=== PATIENT | female | born 1975 | race Hispanic/Latino ===

== ENCOUNTER 2018-12-29 07:12 | Day surgery (SDC) | payer OTHER, SELFPAY ==
[2018-12-28 15:25] VITALS: BP 129/65
[2018-12-28 15:31] LABS: EOSINOPHILS % (AUTO) 1.3 % (0.0-8.0); HEMATOCRIT 37.5 % (36-48); LYMPHOCYTES % (AUTO) 21.2 % (21.0-51.0); MEAN CORPUSCULAR HEMOGLOBIN 30.4 pg (27.0-33.0); MEAN CORPUSCULAR HGB CONC 33.6 g/dL (32.0-36.0); MEAN CORPUSCULAR VOLUME 90.5 fL (79-99); MONOCYTES % (AUTO) 8.2 % (3.0-13.0); NEUTROPHILS % (AUTO) 68.3 % (40.0-77.0); PLATELET COUNT (AUTO) 307 K/uL (130-400); RED BLOOD CELL COUNT(AUTO) 4.14 MIL/uL (4.00-5.50); RED CELL DISTRIBUTION WIDTH 13.3 % (11.0-15.5); WHITE BLOOD COUNT (AUTO) 8.2 K/uL (4.8-10.8)
[2018-12-29] VITALS (13 sets, daily range): BP systolic 123–136; BP diastolic 67–80
[~2018-12-29] VITALS: Ht 165.1 cm; Wt 93.4 kg
[~2018-12-29 07:12] MED LIST: THYR30TA2 PO
[2018-12-29] MEDS: LACTATED RINGERS 1000ML 1,000 ML IV SCH ×2 (07:57→10:30)
[2018-12-29] MEDS ORDERED: PROPOFOL 10 MG/ML 20ML VIAL IV ONE (08:16)
[2018-12-29] MEDS ORDERED: MIDAZOLAM HCL 1 MG/ML 2ML VIAL ONE (08:16)
[2018-12-29] MEDS ORDERED: ROCURONIUM 10MG/1ML SYR 10 MG/ML ML ONE (08:16)
[2018-12-29] MEDS ORDERED: LIDOCAINE PF 2% 5ML ABBOJECT ONE (08:16)
[2018-12-29] MEDS ORDERED: SUCCINYLCHOLINE 200MG/10ML SYR ONE (08:16)
[2018-12-29] MEDS ORDERED: FENTANYL CITRATE PF 50 MCG/1 ML 2ML VIAL ONE (08:17)
[2018-12-29] MEDS ORDERED: ONDANSETRON HCL 4 MG/2 ML VIAL ONE (08:18)
--- NOTE | 2018-12-29 10:04 | NUR ---
ASSESSMENT RECEIVED PT FROM PACU STAFF Charles GODINEZ RN. PT AAOX3/ PERIPAD IN PLACE. NO BLEEDING, OOZING NOTED TO PAD. MOTHER AT BEDSIDE.
--- NOTE | 2018-12-29 10:25 | NUR ---
DISCHARGE ORAL AND WRITTEN DISCHARGE INSTRUCTIONS GIVEN TO PT AND PTS MOTHER. PATRICK PAD IN PLACE. NO BLEEDING, OOZING NOTED TO SITE. NO OTHER QUESTIONS AT THIS TIME.
== END 2018-12-29 10:35 | disposition home or self-care (01) ==
LOC: DAH 07:12
DX: N84.0 Polyp of corpus uteri (principal); E66.9 Obesity, unspecified
CPT/HCPCS: 36415; 58120; 84703; 85025; A4351; J0330; J2001; J2405; J2704; J3010; J7030; J2250

== ENCOUNTER → 2019-01-11 | Outpatient (CLI) | payer OTHER | END | disposition home or self-care (01) | LOC: RAH 14:02 | DX: Z12.31 Encounter for screening mammogram for malignant neoplasm of breast (principal) | CPT/HCPCS: 77067 ==

== ENCOUNTER 2019-09-30 13:51 | Observation (INO) | payer OTHER ==
[~2019-09-30] VITALS: Ht 162.6 cm; Wt 85.7 kg
[2019-09-30 14:23] LABS: BASOPHILS % (AUTO) 0.5 % (0.0-5.0); EOSINOPHILS % (AUTO) 1.1 % (0.0-8.0); HEMATOCRIT 37.1 % (36-48); LYMPHOCYTES % (AUTO) 23.6 % (21.0-51.0); MEAN CORPUSCULAR HEMOGLOBIN 29.8 pg (27.0-33.0); MEAN CORPUSCULAR VOLUME 87.7 fL (79-99); NEUTROPHILS % (AUTO) 65.6 % (40.0-77.0); PLATELET COUNT (AUTO) 325 K/uL (130-400); RED BLOOD CELL COUNT(AUTO) 4.23 MIL/uL (4.00-5.50); RED CELL DISTRIBUTION WIDTH 12.9 % (11.0-15.5); WHITE BLOOD COUNT (AUTO) 8.1 K/uL (4.8-10.8)
[2019-09-30 14:35] LABS: CREATININE 0.9 mg/dL (0.5-1.5)
[2019-09-30 14:36] LABS: INR 1.05 (0.85-1.15); PARTIAL THROMBOPLASTIN TIME 29.1 SEC (26.3-35.5)
[2019-09-30 14:40] LABS: ALBUMIN 3.9 g/dL (3.5-5.0); BILIRUBIN,TOTAL 0.4 mg/dL (0.2-1.0)
[2019-09-30] MEDS ORDERED: POTASSIUM BICARB/CIT AC 25 MEQ TABLET.EFF ONE (15:28)
[2019-09-30] MEDS ORDERED: GADODIAMIDE 10 MMOL/20 ML VIAL IV ONE (18:51)
[2019-09-30] MEDS ORDERED: ONDANSETRON HCL 4 MG/2 ML VIAL IV PRN (20:30)
[2019-09-30] MEDS ORDERED: LACTULOSE 20 GM/30 ML UDCUP PO PRN (20:30)
[2019-09-30] MEDS ORDERED: LIDOCAINE HCL-MPF 1% 2ML VIAL IV PRN (20:30)
[2019-09-30] MEDS ORDERED: ACETAMINOPHEN 325 MG TAB PO PRN ×2 (20:30)
[2019-09-30] MEDS ORDERED: POTASSIUM CHLORIDE 20 MEQ ERTAB PO PRN (20:30)
[2019-09-30] MEDS ORDERED: POTASSIUM CHLORIDE 20MEQ/100ML 100 ML IV PRN (20:30)
[2019-09-30] MEDS ORDERED: POTASSIUM CHLORIDE 10% ELIXIR 20 MEQ/15 ML UDCUP PO PRN (20:30)
[2019-09-30] MEDS ORDERED: POTASSIUM CHLORIDE 20 MEQ ERTAB PO ONE (20:34)
[2019-09-30] MEDS ORDERED: ATORVASTATIN CALCIUM 20 MG TABLET ONE (20:46)
[2019-09-30] MEDS ORDERED: METOPROLOL TARTRATE 25 MG TAB ONE (20:46)
[2019-09-30] MEDS ORDERED: FAMOTIDINE 20MG TAB 20 MG TAB ONE (20:46)
[2019-09-30] MEDS: METOPROLOL TARTRATE 25 MG TAB PO SCH (21:00)
[2019-09-30] MEDS: ATORVASTATIN CALCIUM 20 MG TABLET PO SCH (21:00)
[2019-09-30] MEDS: FAMOTIDINE 20MG TAB 20 MG TAB PO SCH (21:00)
[2019-09-30 21:07] LABS: CHOLESTEROL 200 mg/dL (<200); HDL CHOLESTEROL 110 mg/dL (35-85); LDL DIRECT 134 mg/dL (0-99); TRIGLYCERIDES 65 mg/dL (30-200)
[2019-09-30 22:30] VITALS: BP 106/89
[2019-09-30] MEDS ORDERED: GABA-531 PO (22:45)
[2019-09-30] MEDS ORDERED: LEVO75CA2 PO (22:45)
[2019-09-30] MEDS ORDERED: TRAM50TA4 PO (22:45)
[2019-10-01 03:35] VITALS: BP 89/55
[2019-10-01 05:03] LABS: BASOPHILS % (AUTO) 0.6 % (0.0-5.0); EOSINOPHILS % (AUTO) 2.5 % (0.0-8.0); HEMATOCRIT 35.5 % (36-48); LYMPHOCYTES % (AUTO) 33.2 % (21.0-51.0); MEAN CORPUSCULAR HEMOGLOBIN 29.6 pg (27.0-33.0); MEAN CORPUSCULAR HGB CONC 33.5 g/dL (32.0-36.0); MEAN CORPUSCULAR VOLUME 88.3 fL (79-99); MONOCYTES % (AUTO) 11.9 % (3.0-13.0); NEUTROPHILS % (AUTO) 51.5 % (40.0-77.0); PLATELET COUNT (AUTO) 323 K/uL (130-400); RED BLOOD CELL COUNT(AUTO) 4.02 MIL/uL (4.00-5.50); RED CELL DISTRIBUTION WIDTH 13.2 % (11.0-15.5); WHITE BLOOD COUNT (AUTO) 6.9 K/uL (4.8-10.8)
[2019-10-01 05:22] LABS: CREATININE 0.9 mg/dL (0.5-1.5); POTASSIUM 4.1 mmol/L (3.5-5.1)
[2019-10-01 07:44] VITALS: BP 103/66
[2019-10-01] MEDS: FAMOTIDINE 20MG TAB 20 MG TAB PO SCH ×2 (08:18→20:04)
[2019-10-01] MEDS: ASPIRIN 81MG TAB.CHEW PO SCH (08:18)
[2019-10-01] MEDS: METOPROLOL TARTRATE 25 MG TAB PO SCH ×2 (08:21→20:04)
--- NOTE | 2019-10-01 09:00 | NUR ---
DR LORENZ/CONSULT PAGED REGARDING NEW CONSULT. PENDING CB
--- NOTE | 2019-10-01 09:32 | NUR ---
DR LORENZ RESPONDED SAID HE WILL BE BY TO SEE PT
[2019-10-01 11:39] VITALS: BP 118/71
[2019-10-01] MEDS ORDERED: GADODIAMIDE 10 MMOL/20 ML VIAL IV ONE (13:06)
[2019-10-01 16:05] VITALS: BP 109/69
--- NOTE | 2019-10-01 19:04 | NUR ---
INITIAL: Met with pt and spouse this afternoon to discuss dcp. Pt mentions that she lives w her spouse and 2 sons. Prior to admission she was independent w ambulation and ADLs. She does not own any DME or receive services. 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 Pt mentions that she feels safe and comfortable to return home at la. CM to continue to follow and wait for Md recommendations. Addendum: 10/01/19 at 1905 by CICI CHRISTINA Amended: Links added.
[2019-10-01 19:41] VITALS: BP 108/66
[2019-10-01] MEDS: ATORVASTATIN CALCIUM 20 MG TABLET PO SCH (20:05)
[2019-10-01 23:30] VITALS: BP 101/60
[2019-10-02 03:18] VITALS: BP 105/60
[2019-10-02 05:10] LABS: BASOPHILS % (AUTO) 0.6 % (0.0-5.0); EOSINOPHILS % (AUTO) 2.7 % (0.0-8.0); HEMATOCRIT 35.7 % (36-48); LYMPHOCYTES % (AUTO) 35.2 % (21.0-51.0); MEAN CORPUSCULAR HEMOGLOBIN 30.2 pg (27.0-33.0); MEAN CORPUSCULAR HGB CONC 33.6 g/dL (32.0-36.0); MEAN CORPUSCULAR VOLUME 89.9 fL (79-99); MONOCYTES % (AUTO) 8.9 % (3.0-13.0); NEUTROPHILS % (AUTO) 52.4 % (40.0-77.0); PLATELET COUNT (AUTO) 297 K/uL (130-400); RED BLOOD CELL COUNT(AUTO) 3.97 MIL/uL (4.00-5.50); RED CELL DISTRIBUTION WIDTH 13.2 % (11.0-15.5); WHITE BLOOD COUNT (AUTO) 6.3 K/uL (4.8-10.8)
[2019-10-02 05:18] LABS: ALBUMIN 3.3 g/dL (3.5-5.0); BILIRUBIN,TOTAL 0.3 mg/dL (0.2-1.0); POTASSIUM 4.1 mmol/L (3.5-5.1); TOTAL PROTEIN, SERUM 6.9 g/dL (6.0-8.3)
[2019-10-02 07:00] VITALS: BP 108/64
[2019-10-02] MEDS: FAMOTIDINE 20MG TAB 20 MG TAB PO SCH (10:47)
[2019-10-02] MEDS: METOPROLOL TARTRATE 25 MG TAB PO SCH (10:47)
[2019-10-02] MEDS: ASPIRIN 81MG TAB.CHEW PO SCH (10:47)
[2019-10-02 11:31] VITALS: BP 109/70
[2019-10-02] MEDS ORDERED: GABAPENTIN 100 MG CAPSULE PO SCH (14:00)
[2019-10-02 16:22] VITALS: BP 105/76
[2019-10-02] MEDS ORDERED: ASPI-555 PO (16:52)
[2019-10-02] MEDS ORDERED: ATOR20TA65 PO (16:52)
[2019-10-02] MEDS ORDERED: GABA-529 PO (16:52)
--- NOTE | 2019-10-02 17:59 | NUR ---
DISCHARGE INSTRUCTIONS GIVEN TO PATIENT, MADE AWARE OF FOLLOW UP APPOINTMENT WITH PCP AND PROVIDED WITH INFORMATION TO FOLLOW UP WITH DR. LORENZ AND DR. EDWARD. NEW PRINTED RX FOR ASPIRIN, ATORVASTATIN AND GABAPENTIN PROVIDED. IV AND TELE REMOVED.PATIENT AT THIS TIME DENIES ANY NUMBNESS OR TINGLING. DENIES PAIN, AMBULATING IN ROOM. PATIENT TO BE TRANSPORTED HOME BY SPOUSE
== END 2019-10-02 18:10 | disposition home or self-care (01) ==
LOC: EDH 13:51 → EDHIP 20:16 → 4DH 22:29
PROVIDERS: ADMIT Family Medicine; ATTEND Family Medicine
DX: R20.2 Paresthesia of skin (principal); M50.21 Other cervical disc displacement, high cervical region; R20.0 Anesthesia of skin; R07.89 Other chest pain; M79.604 Pain in right leg; E87.6 Hypokalemia; M79.7 Fibromyalgia; E03.9 Hypothyroidism, unspecified; Z79.899 Other long term (current) drug therapy
CPT/HCPCS: 36415 ×3; 70450; 70549; 70553; 71045; 72156; 80048; 80053 ×2; 80061; 82550; 83735; 84443; 84484 ×3; 85025 ×3; 85610; 85651; 85730; 86592; 93005; 93306; 93971; 99284; A9579 ×2; G0378 ×46

== ENCOUNTER → 2021-03-26 | Outpatient (CLI) | payer OTHER ==
[~2021-03-26] MED LIST changes: +ASPI-556 PO; +ATOR20TA65 PO; +GABA-529 PO; +LEVO75CA2 PO; +TRAM50TA4 PO
== END | disposition home or self-care (01) ==
LOC: OIH 09:47
PROVIDERS: ATTEND Internal Medicine Cardiovascular Disease
DX: Z13.6 Encounter for screening for cardiovascular disorders (principal)
CPT/HCPCS: 75571

== ENCOUNTER → 2021-11-13 | Outpatient (CLI) | payer OTHER | END | disposition home or self-care (01) | LOC: RAH 13:28 | PROVIDERS: ATTEND Internal Medicine Cardiovascular Disease | DX: I08.3 Combined rheumatic disorders of mitral, aortic and tricuspid valves (principal); Z86.711 Personal history of pulmonary embolism; Z86.74 Personal history of sudden cardiac arrest | CPT/HCPCS: 93306 ==

== ENCOUNTER 2021-12-19 11:12 | Emergency (ER) | payer OTHER ==
[~2021-12-19] VITALS: Ht 157.5 cm; Wt 91.6 kg
[2021-12-19 11:28] VITALS: BP 159/94
[2021-12-19 11:52] LABS: BASOPHILS % (AUTO) 0.6 % (0.0-5.0); EOSINOPHILS % (AUTO) 1.8 % (0.0-8.0); HEMATOCRIT 34.7 % (36-48); MEAN CORPUSCULAR HEMOGLOBIN 27.9 pg (27.0-33.0); MEAN CORPUSCULAR HGB CONC 32.6 g/dL (32.0-36.0); MEAN CORPUSCULAR VOLUME 85.7 fL (79-99); NEUTROPHILS % (AUTO) 70.3 % (40.0-77.0); PLATELET COUNT (AUTO) 303 K/uL (130-400); RED BLOOD CELL COUNT(AUTO) 4.05 MIL/uL (4.00-5.50); RED CELL DISTRIBUTION WIDTH 14.8 % (11.0-15.5); WHITE BLOOD COUNT (AUTO) 8.8 K/uL (4.8-10.8)
[2021-12-19 12:00] LABS: APPEARANCE,URINE Clear (CLEAR); BILIRUBIN,URINE Negative (NEGATIVE); COLOR,URINE Yellow (YELLOW); GLUCOSE, URINE (UA) Negative (NEGATIVE); KETONES,URINE Negative (NEGATIVE); LEUKOCYTE ESTERASE ,URINE Negative (NEGATIVE); NITRATE,URINE Negative (NEGATIVE); OCCULT BLOOD,URINE Negative (NEGATIVE); PROTEIN,URINE Negative (NEGATIVE); UROBILINOGEN,URINE 0.2 mg/dL (0.2-1.0)
[2021-12-19 12:07] LABS: ALBUMIN 3.8 g/dL (3.5-5.0); BILIRUBIN,TOTAL 0.4 mg/dL (0.2-1.0); CREATININE 0.9 mg/dL (0.5-1.5); POTASSIUM 3.4 mmol/L (3.5-5.1); TOTAL PROTEIN, SERUM 8.1 g/dL (6.0-8.3)
[2021-12-19] MEDS ORDERED: POTASSIUM BICARB/CIT AC 25 MEQ TABLET.EFF ONE (12:26)
[2021-12-19] MEDS ORDERED: POTASSIUM BICARB/CIT AC 25 MEQ TABLET.EFF PO ONE (12:30)
== END 2021-12-19 12:49 | disposition home or self-care (01) ==
LOC: EDH 11:12
DX: E87.6 Hypokalemia (principal); M79.7 Fibromyalgia; E03.9 Hypothyroidism, unspecified; Z79.01 Long term (current) use of anticoagulants; Z79.82 Long term (current) use of aspirin; Z79.899 Other long term (current) drug therapy; Z86.711 Personal history of pulmonary embolism; Z86.74 Personal history of sudden cardiac arrest; Z90.49 Acquired absence of other specified parts of digestive tract
CPT/HCPCS: 36415; 80053; 81003; 85025; 93971

== ENCOUNTER → 2021-12-26 | Outpatient (CLI) | payer OTHER | END | disposition home or self-care (01) | LOC: RAH 13:28 | PROVIDERS: ATTEND Internal Medicine Cardiovascular Disease | DX: I26.90 Septic pulmonary embolism without acute cor pulmonale (principal) | CPT/HCPCS: 71045 ==

== ENCOUNTER → 2021-12-29 | Outpatient (CLI) | payer OTHER | END | disposition home or self-care (01) | LOC: RAH 13:50 | PROVIDERS: ATTEND Internal Medicine Cardiovascular Disease | DX: I26.99 Other pulmonary embolism without acute cor pulmonale (principal) | CPT/HCPCS: 78582; A9540; A9558 ==

== ENCOUNTER 2022-03-24 02:41 | Emergency (ER) | payer OTHER ==
[~2022-03-24] VITALS: Ht 162.6 cm; Wt 90.3 kg
[2022-03-24 03:33] LABS: BASOPHILS % (AUTO) 0.6 % (0.0-5.0); EOSINOPHILS % (AUTO) 1.7 % (0.0-8.0); HEMATOCRIT 34.3 % (36-48); LYMPHOCYTES % (AUTO) 22.2 % (21.0-51.0); MEAN CORPUSCULAR HEMOGLOBIN 27.9 pg (27.0-33.0); MEAN CORPUSCULAR HGB CONC 33.2 g/dL (32.0-36.0); MEAN CORPUSCULAR VOLUME 83.9 fL (79-99); MONOCYTES % (AUTO) 6.9 % (3.0-13.0); NEUTROPHILS % (AUTO) 68.3 % (40.0-77.0); PLATELET COUNT (AUTO) 317 K/uL (130-400); RED BLOOD CELL COUNT(AUTO) 4.09 MIL/uL (4.00-5.50); RED CELL DISTRIBUTION WIDTH 15.5 % (11.0-15.5); WHITE BLOOD COUNT (AUTO) 9.4 K/uL (4.8-10.8)
[2022-03-24 03:49] LABS: POTASSIUM 3.5 mmol/L (3.5-5.1)
[2022-03-24 03:53] LABS: ALBUMIN 3.9 g/dL (3.5-5.0); TOTAL PROTEIN, SERUM 7.9 g/dL (6.0-8.3)
[2022-03-24] MEDS ORDERED: MORPHINE 4 MG SYG IM ONE (04:00)
[2022-03-24] MEDS ORDERED: LACTULOSE 20 GM/30 ML UDCUP PO ONE (05:00)
[2022-03-24 05:11] LABS: APPEARANCE,URINE CLEAR (CLEAR); BILIRUBIN,URINE NEGATIVE (NEGATIVE); COLOR,URINE YELLOW (YELLOW); GLUCOSE, URINE (UA) NEGATIVE (NEGATIVE); KETONES,URINE NEGATIVE (NEGATIVE); LEUKOCYTE ESTERASE ,URINE TRACE (NEGATIVE); NITRATE,URINE NEGATIVE (NEGATIVE); OCCULT BLOOD,URINE MODERATE (NEGATIVE); PH,URINE 6.5 (5.0-8.0); PROTEIN,URINE NEGATIVE (NEGATIVE); UROBILINOGEN,URINE 0.2 mg/dL (0.2-1.0)
[2022-03-24 05:42] LABS: BACTERIA,URINE None Seen /HPF (None Seen); RBC,URINE None Seen /HPF (0-1); SQUAMOUS EPITHELIAL CELL,UR Few /HPF (0-2); WBC,URINE None Seen /HPF (0-1)
[2022-03-24 06:12] VITALS: BP 126/71
[2022-03-24] MEDS ORDERED: POLY119P2 PO (06:48)
== END 2022-03-24 07:00 | disposition home or self-care (01) ==
LOC: EDH 02:41
DX: K59.00 Constipation, unspecified (principal); R10.11 Right upper quadrant pain; E03.9 Hypothyroidism, unspecified; Z79.82 Long term (current) use of aspirin; Z79.899 Other long term (current) drug therapy; Z86.711 Personal history of pulmonary embolism; Z90.49 Acquired absence of other specified parts of digestive tract
CPT/HCPCS: 99284; 74176; 80053; 84703; 83690; 85025; 81001; 36415; 96372; J2270

== ENCOUNTER 2022-09-13 18:46 | Emergency (ER) | payer OTHER ==
[~2022-09-13] VITALS: Ht 165.1 cm; Wt 91.6 kg
[~2022-09-13 18:46] MED LIST changes: +POLY119P2 PO
[2022-09-13 19:09] LABS: BASOPHILS % (AUTO) 0.4 % (0.0-5.0); EOSINOPHILS % (AUTO) 2.3 % (0.0-8.0); HEMATOCRIT 35.1 % (36-48); LYMPHOCYTES % (AUTO) 20.1 % (21.0-51.0); MEAN CORPUSCULAR HEMOGLOBIN 28.2 pg (27.0-33.0); MEAN CORPUSCULAR VOLUME 85.2 fL (79-99); MONOCYTES % (AUTO) 11.3 % (3.0-13.0); NEUTROPHILS % (AUTO) 65.5 % (40.0-77.0); PLATELET COUNT (AUTO) 324 K/uL (130-400); RED BLOOD CELL COUNT(AUTO) 4.12 MIL/uL (4.00-5.50); RED CELL DISTRIBUTION WIDTH 15.9 % (11.0-15.5); WHITE BLOOD COUNT (AUTO) 7.3 K/uL (4.8-10.8)
[2022-09-13 19:13] LABS: POTASSIUM 3.2 mmol/L (3.5-5.1)
[2022-09-13 19:22] LABS: ALBUMIN 3.9 g/dL (3.5-5.0); TOTAL PROTEIN, SERUM 8.2 g/dL (6.0-8.3)
[2022-09-13] MEDS ORDERED: IOHEXOL 350 MG/ML 100ML INFUS..BTL IV ONE (19:30)
[2022-09-13 19:49] LABS: APPEARANCE,URINE CLEAR (CLEAR); BILIRUBIN,URINE NEGATIVE (NEGATIVE); COLOR,URINE COLORLESS (YELLOW); GLUCOSE, URINE (UA) NEGATIVE (NEGATIVE); KETONES,URINE NEGATIVE (NEGATIVE); LEUKOCYTE ESTERASE ,URINE NEGATIVE Leu/uL (NEGATIVE); NITRATE,URINE NEGATIVE (NEGATIVE); OCCULT BLOOD,URINE NEGATIVE (NEGATIVE); PH,URINE 6.5 (5.0-8.0); PROTEIN,URINE NEGATIVE (NEGATIVE); UROBILINOGEN,URINE 0.2 mg/dL (0.2-1.0)
[2022-09-13 19:53] LABS: HCG,QUALITATIVE URINE NEGATIVE (NEGATIVE)
[2022-09-13 21:47] LABS: ABG BASE EXCESS 1.2 mmol/L (-2.0-3.0); ABG HCO3 23.6 mmol/L (21.0-28.0); ABG OXYGEN SATURATION 97.8 % (95.0-99.0); ABG PCO2 32 mmHg (32-45)
[2022-09-13] MEDS ORDERED: ALBU90AE2 IH (22:08)
[2022-09-13] MEDS ORDERED: IPRATROPIUM/ALBUTEROL SULFATE 3 ML SOLUTION IH ONE (22:30)
[2022-09-13] MEDS ORDERED: IPRATROPIUM 0.5 MG/2.5 ML INH IH ONE (22:38)
[2022-09-13] MEDS ORDERED: ALBUTEROL 0.083% 2.5 MG/3 ML INH IH ONE (23:00)
[2022-09-13 23:16] VITALS: BP 136/73
== END 2022-09-13 23:17 | disposition home or self-care (01) ==
LOC: EDH 18:46
DX: J45.909 Unspecified asthma, uncomplicated (principal); E03.9 Hypothyroidism, unspecified; Z79.899 Other long term (current) drug therapy; Z79.82 Long term (current) use of aspirin; Z90.710 Acquired absence of both cervix and uterus; Z90.49 Acquired absence of other specified parts of digestive tract; Z98.890 Other specified postprocedural states
CPT/HCPCS: 99285; 71270; 71045; 84484; 80053; 82803; 83880; 85025; 85378; 81003; 81025; 36415; 93005; 36600; 94640; Q9967

== ENCOUNTER 2022-11-20 18:15 | Emergency (ER) | payer OTHER ==
[~2022-11-20] VITALS: Ht 162.6 cm; Wt 93.9 kg
[~2022-11-20 18:15] MED LIST changes: +ALBU90AE2 IH
[2022-11-20 19:03] LABS: BASOPHILS % (AUTO) 0.5 % (0.0-5.0); EOSINOPHILS % (AUTO) 1.4 % (0.0-8.0); HEMATOCRIT 35.1 % (36-48); LYMPHOCYTES % (AUTO) 21.3 % (21.0-51.0); MEAN CORPUSCULAR HEMOGLOBIN 28.4 pg (27.0-33.0); MEAN CORPUSCULAR HGB CONC 32.5 g/dL (32.0-36.0); MEAN CORPUSCULAR VOLUME 87.5 fL (79-99); MONOCYTES % (AUTO) 8.3 % (3.0-13.0); NEUTROPHILS % (AUTO) 68.1 % (40.0-77.0); PLATELET COUNT (AUTO) 332 K/uL (130-400); RED BLOOD CELL COUNT(AUTO) 4.01 MIL/uL (4.00-5.50); RED CELL DISTRIBUTION WIDTH 14.6 % (11.0-15.5); WHITE BLOOD COUNT (AUTO) 9.7 K/uL (4.8-10.8)
[2022-11-20 19:09] LABS: CREATININE 1.1 mg/dL (0.5-1.5); POTASSIUM 3.5 mmol/L (3.5-5.1)
[2022-11-20 20:21] LABS: B-TYPE NATRIURETIC PEPTIDE 43 pg/mL (0-100)
[2022-11-20 22:02] LABS: APPEARANCE,URINE CLEAR (CLEAR); BILIRUBIN,URINE NEGATIVE (NEGATIVE); COLOR,URINE LIGHT-YELLOW (YELLOW); GLUCOSE, URINE (UA) NEGATIVE (NEGATIVE); KETONES,URINE NEGATIVE (NEGATIVE); LEUKOCYTE ESTERASE ,URINE NEGATIVE Leu/uL (NEGATIVE); NITRATE,URINE NEGATIVE (NEGATIVE); OCCULT BLOOD,URINE SMALL (NEGATIVE); PROTEIN,URINE NEGATIVE (NEGATIVE); UROBILINOGEN,URINE 0.2 mg/dL (0.2-1.0)
[2022-11-20 22:05] LABS: BACTERIA,URINE RARE /HPF (None Seen); MUCUS,URINE RARE LPF (None Seen); SQUAMOUS EPITHELIAL CELL,UR MOD /HPF (0-2); WBC,URINE 0-1 /HPF (0-1); YEAST,URINE BUDDING RARE /HPF (None Seen)
[2022-11-20] MEDS ORDERED: HYDROMORPHONE 0.5 MG SYG (0.5MG/0.5ML) IM ONE (23:30)
[2022-11-20] MEDS ORDERED: TRAM100T40 PO (23:59)
[2022-11-21 00:02] VITALS: BP 139/81
== END 2022-11-21 00:11 | disposition home or self-care (01) ==
LOC: EDH 18:15
DX: M79.605 Pain in left leg (principal); M79.604 Pain in right leg; M79.7 Fibromyalgia; E03.9 Hypothyroidism, unspecified; Z20.822 Contact with and (suspected) exposure to COVID-19; Z79.899 Other long term (current) drug therapy; Z79.82 Long term (current) use of aspirin; Z98.890 Other specified postprocedural states; Z90.49 Acquired absence of other specified parts of digestive tract
CPT/HCPCS: 99285; 71045; 87635; 83735; 84484; 80053; 83880; 85025; 87804 ×2; 81001; 36415; 96372; 93005; C9803; J1170